=== PATIENT | female | born 1975 | race Caucasian/White ===

== ENCOUNTER 2016-12-04 15:31 | Emergency (ER) | payer OTHER | END 2016-12-04 17:22 | disposition home or self-care (01) | LOC: FER 15:31 | DX: S39.012A Strain of muscle, fascia and tendon of lower back, initial encounter (principal); F32.9 Major depressive disorder, single episode, unspecified; F41.9 Anxiety disorder, unspecified; Z79.899 Other long term (current) drug therapy; X50.0XXA Overexertion from strenuous movement or load, initial encounter; Y92.009 Unspecified place in unspecified non-institutional (private) residence as the place of occurrence of the external cause | CPT/HCPCS: J1100; J1885 ==